=== PATIENT | male | born 1985 | race Two or more races ===

== ENCOUNTER 2016-09-13 18:55 | Emergency (ER) | payer SELFPAY ==
[~2016-09-13] VITALS: Ht 175.3 cm; Wt 86.2 kg
[2016-09-13 19:00] VITALS: BP 131/80
== END 2016-09-13 21:09 | disposition home or self-care (01) ==
LOC: ER 18:58
DX: S02.81XA Fracture of other specified skull and facial bones, right side, initial encounter for closed fracture (principal); S00.93XA Contusion of unspecified part of head, initial encounter; V86.59XA Driver of other special all-terrain or other off-road motor vehicle injured in nontraffic accident, initial encounter; Y93.89 Activity, other specified; Y99.8 Other external cause status; Y92.89 Other specified places as the place of occurrence of the external cause
CPT/HCPCS: 70450; 70486